=== PATIENT | female | born 1990 | race Caucasian/White ===

== ENCOUNTER 2018-03-03 20:47 | Emergency (ER) | payer MEDICAID ==
[~2018-03-03] VITALS: Ht 165.1 cm; Wt 81.2 kg
[2018-03-03 20:59] VITALS: BP_SYST 124
[2018-03-03] MEDS ORDERED: NACL 0.9% 1,000 ML IV ONE (21:34)
[2018-03-03] MEDS ORDERED: PANTOPRAZOLE SODIUM 40 MG/VIAL (PROTONIX) IVP ONE (21:45)
[2018-03-03] MEDS ORDERED: ONDANSETRON HCL 4 MG/2 ML VIAL IVP ONE (21:45)
[2018-03-03] MEDS ORDERED: MAG HYDROX/AL HYDROX/SIMETH 30 ML, BELLADONNA ALKALOIDS/PHENOBARB 10 ML, LIDOCAINE VISC... PO ONE ×3 (21:45)
[2018-03-03 22:23] LABS: BASOPHILS % (AUTO) 0.5 % (0.0-2.0); EOSINOPHILS # (AUTO) 0.1 K/uL (0.0-0.4); EOSINOPHILS % (AUTO) 1.2 % (0.0-4.0); HEMOGLOBIN 12.5 g/dL (12.0-16.0); LYMPHOCYTES # (AUTO) 1.4 K/uL (1.0-5.5); LYMPHOCYTES % (AUTO) 16.2 % (20.5-51.5); MEAN CORPUSCULAR HEMOGLOBIN 22 pg (27-31); MEAN CORPUSCULAR HGB CONC 32 % (32-36); MEAN CORPUSCULAR VOLUME 68 fL (79.0-98.0); MONOCYTES # (AUTO) 0.5 K/uL (0.0-1.0); MONOCYTES % (AUTO) 5.2 % (1.7-9.3); NEUTROPHILS # (AUTO) 6.8 K/uL (1.8-7.7); NEUTROPHILS % (AUTO) 76.9 % (40.0-70.0); PLATELET COUNT (AUTO) 311 K/uL (130-430); RED BLOOD CELL COUNT(AUTO) 5.72 MIL/uL (4.2-6.2); WHITE BLOOD COUNT (AUTO) 8.8 K/uL (4.8-10.8)
[2018-03-03 22:25] LABS: CALCIUM 9.2 mg/dL (8.4-11.0); CREATININE 0.87 mg/dL (0.55-1.30); POTASSIUM 3.6 mmol/L (3.5-5.1)
[2018-03-03 22:31] LABS: ALBUMIN 3.7 g/dL (3.4-4.8); TOTAL BILIRUBIN 0.8 mg/dL (0.0-1.0)
[2018-03-03 22:44] LABS: BILIRUBIN,URINE NEGATIVE (NEGATIVE); CLARITY/URINE CLEAR (CLEAR); COLOR,URINE YELLOW (YELLOW); GLUCOSE,URINE NEGATIVE (NEGATIVE); KETONES,URINE NEGATIVE (NEGATIVE); LEUKOCYTE ESTERASE ,URINE NEGATIVE (NEGATIVE); NITRITE, URINE NEGATIVE (NEGATIVE); PROTEIN URINE NEGATIVE (NEGATIVE); UROBILINOGEN,URINE 0.2 (0.2-1.0)
[2018-03-03 22:51] LABS: BLOOD, URINE TRACE (NEGATIVE)
[2018-03-03 23:17] LABS: BACTERIA,URINE FEW /HPF (None Seen); WBC,URINE 0-3 /HPF (0-3)
[2018-03-03 23:18] LABS: MUCUS,URINE 1+ /LPF (None Seen)
[2018-03-03] MEDS ORDERED: DIPHENHYDRAMINE INJ 50 MG/ML VIAL IVP ONE (23:30)
[2018-03-03] MEDS ORDERED: MORPHINE 2 MG/ML INJ. SYRINGE IVP ONE (23:30)
[2018-03-03] MEDS ORDERED: MORPHINE SULFATE 10 MG/ML VIAL ONE (23:34)
[2018-03-04] MEDS ORDERED: MORPHINE 4 MG/ML INJ. SYRINGE IVP ONE (01:15)
[2018-03-04] MEDS ORDERED: DIPHENHYDRAMINE INJ 50 MG/ML VIAL IVP ONE (01:15)
[2018-03-04 01:58] VITALS: BP_SYST 121
== END 2018-03-04 01:58 | disposition home or self-care (01) ==
LOC: SED 20:47
DX: R10.13 Epigastric pain (principal); Z88.5 Allergy status to narcotic agent; Z86.79 Personal history of other diseases of the circulatory system; Z98.51 Tubal ligation status
CPT/HCPCS: 36415; 76700; 80053; 81000; 83690; 85025; 96361; 96374; 96375; 96376; 99285; C9113; J1200 ×2; J2001; J2270 ×2; J2405; J7030

== ENCOUNTER 2018-04-10 20:23 | Emergency (ER) | payer MEDICAID ==
[~2018-04-10] VITALS: Ht 165.1 cm; Wt 77.1 kg
[2018-04-10 20:30] VITALS: BP_SYST 130
[2018-04-10] MEDS ORDERED: NACL 0.9% 1,000 ML IV ONE (21:00)
[2018-04-10 21:25] LABS: BILIRUBIN,URINE NEGATIVE (NEGATIVE); BLOOD, URINE TRACE (NEGATIVE); CLARITY/URINE CLEAR (CLEAR); COLOR,URINE YELLOW (YELLOW); GLUCOSE,URINE NEGATIVE (NEGATIVE); KETONES,URINE NEGATIVE (NEGATIVE); LEUKOCYTE ESTERASE ,URINE NEGATIVE (NEGATIVE); NITRITE, URINE POSITIVE (NEGATIVE); PROTEIN URINE TRACE (NEGATIVE); UROBILINOGEN,URINE 0.2 (0.2-1.0)
[2018-04-10 21:28] LABS: BACTERIA,URINE MODERATE /HPF (None Seen); MUCUS,URINE 1+ /LPF (None Seen)
[2018-04-10 21:34] LABS: BARBITURATE, URINE NEGATIVE (NEG <=200); BENZODIAZEPINE, URINE NEGATIVE (NEG <=150); CANNABINOID, URINE POSITIVE (NEG <=50); COCAINE, URINE NEGATIVE (NEG <=150); METHAMPHETAMINES SCREEN,URINE POSITIVE (NEG <=500); OPIATE, URINE NEGATIVE (NEG <=100); PHENCYCLIDINE SCREEN,URINE NEGATIVE (NEG <=25); UR TRICYCLIC ANTIDEPRESSANTS NEGATIVE (NEG <=300); URINE AMPHETAMINE POSITIVE (NEG <=500); URINE METHADONE NEGATIVE (NEG <=200); URINE OXYCODONE SCREEN NEGATIVE (NEG <=100); URINE PROPOXYPHENE SCREEN NEGATIVE (NEG <=300)
[2018-04-10 21:41] LABS: EOSINOPHILS # (AUTO) 0.1 K/uL (0.0-0.4); LYMPHOCYTES # (AUTO) 2.3 K/uL (1.0-5.5); MEAN CORPUSCULAR HGB CONC 33 % (32-36); RED BLOOD CELL COUNT(AUTO) 5.46 MIL/uL (4.2-6.2); WHITE BLOOD COUNT (AUTO) 8.4 K/uL (4.8-10.8)
[2018-04-10 21:48] LABS: BASOPHILS # (AUTO) 0.1 K/uL (0.0-0.2); BASOPHILS % (AUTO) 1.2 % (0.0-2.0); HEMATOCRIT 38.8 % (36-48); HEMOGLOBIN 12.8 g/dL (12.0-16.0); LYMPHOCYTES % (AUTO) 27.2 % (20.5-51.5); MEAN CORPUSCULAR HEMOGLOBIN 23 pg (27-31); MEAN CORPUSCULAR VOLUME 71 fL (79.0-98.0); MONOCYTES # (AUTO) 0.4 K/uL (0.0-1.0); MONOCYTES % (AUTO) 4.7 % (1.7-9.3); NEUTROPHILS # (AUTO) 5.5 K/uL (1.8-7.7); NEUTROPHILS % (AUTO) 65.9 % (40.0-70.0); PLATELET COUNT (AUTO) 383 K/uL (130-430); RED CELL DISTRIBUTION WIDTH 18.4 % (9.0-15.0)
[2018-04-10 21:54] LABS: CALCIUM 8.8 mg/dL (8.4-11.0); CREATININE 0.87 mg/dL (0.55-1.30); POTASSIUM 3.9 mmol/L (3.5-5.1)
[2018-04-10 22:08] LABS: ALBUMIN 3.9 g/dL (3.4-4.8); THYROID STIMULATING HORMONE 1.15 uIu/mL (0.34-4.82); TOTAL BILIRUBIN 0.5 mg/dL (0.0-1.0)
[2018-04-10 22:24] VITALS: BP_SYST 128
== END 2018-04-10 22:24 | disposition home or self-care (01) ==
LOC: SED 20:23
DX: S00.03XA Contusion of scalp, initial encounter (principal); N39.0 Urinary tract infection, site not specified; F15.10 Other stimulant abuse, uncomplicated; F10.10 Alcohol abuse, uncomplicated; F12.90 Cannabis use, unspecified, uncomplicated; R03.0 Elevated blood-pressure reading, without diagnosis of hypertension; Z88.5 Allergy status to narcotic agent; Z86.79 Personal history of other diseases of the circulatory system; Z95.0 Presence of cardiac pacemaker; W18.30XA Fall on same level, unspecified, initial encounter; Y93.89 Activity, other specified; Y92.89 Other specified places as the place of occurrence of the external cause; Y99.8 Other external cause status
CPT/HCPCS: 36415; 70450; 72125; 80053; 80307; 81000; 84443; 85025; 87086; 93005; 96360; 99285; J7030

== ENCOUNTER 2018-08-20 12:25 | Emergency (ER) | payer MEDICAID ==
[~2018-08-20] VITALS: Ht 165.1 cm; Wt 81.6 kg
[2018-08-20 12:25] VITALS: BP_SYST 113
--- NOTE | 2018-08-20 12:25 | NUR ---
BROUGHT BACK TO BED #4 AND TRIAGED. REPORT GIVEN TO AC
--- NOTE | 2018-08-20 12:45 | NUR ---
DR VILLARREAL AT BEDSIDE FOR EVALUATION
--- NOTE | 2018-08-20 13:00 | NUR ---
Pt c/o sore throat and cough, no acute resp distress noted.
--- NOTE | 2018-08-20 13:33 | NUR ---
Patient given written and verbal discharge instructions and verbalizes understanding. ER MD discussed with patient the results and treatment provided. Patient in stable condition. ID arm band removed. Rx of Tramadol,Cepacol,Z-zhanna given. Patient educated on pain management and to follow up with PMD. Pain Scale 2. Opportunity for questions provided and answered. Medication side effect fact sheet provided.
[2018-08-20 13:35] VITALS: BP_SYST 127
== END 2018-08-20 13:33 | disposition home or self-care (01) ==
LOC: SED 12:25
DX: J03.90 Acute tonsillitis, unspecified (principal); Z88.5 Allergy status to narcotic agent
CPT/HCPCS: 99283

== ENCOUNTER 2018-10-30 16:26 | Emergency (ER) | payer MEDICAID ==
[~2018-10-30] VITALS: Ht 165.1 cm; Wt 82.6 kg
[2018-10-30 16:35] VITALS: BP_SYST 131
[2018-10-30 17:53] LABS: BASOPHILS # (AUTO) 0.1 K/uL (0.0-0.2); BASOPHILS % (AUTO) 0.8 % (0.0-2.0); EOSINOPHILS # (AUTO) 0.1 K/uL (0.0-0.4); HEMOGLOBIN 13.1 g/dL (12.0-16.0); LYMPHOCYTES # (AUTO) 1.9 K/uL (1.0-5.5); LYMPHOCYTES % (AUTO) 27.2 % (20.5-51.5); MEAN CORPUSCULAR HEMOGLOBIN 24 pg (27-31); MEAN CORPUSCULAR HGB CONC 32 % (32-36); MEAN CORPUSCULAR VOLUME 76 fL (79.0-98.0); MONOCYTES # (AUTO) 0.4 K/uL (0.0-1.0); MONOCYTES % (AUTO) 5.6 % (1.7-9.3); NEUTROPHILS # (AUTO) 4.5 K/uL (1.8-7.7); NEUTROPHILS % (AUTO) 65.4 % (40.0-70.0); PLATELET COUNT (AUTO) 384 K/uL (130-430); RED CELL DISTRIBUTION WIDTH 14.1 % (9.0-15.0)
[2018-10-30 18:07] LABS: CALCIUM 9.1 mg/dL (8.4-11.0); CREATININE 0.88 mg/dL (0.55-1.30); POTASSIUM 3.9 mmol/L (3.5-5.1)
[2018-10-30 18:12] LABS: ALBUMIN 3.8 g/dL (3.4-4.8); TOTAL BILIRUBIN 0.4 mg/dL (0.0-1.0)
[2018-10-30 18:36] VITALS: BP_SYST 131
== END 2018-10-30 18:36 | disposition home or self-care (01) ==
LOC: SED 16:26
DX: N93.8 Other specified abnormal uterine and vaginal bleeding (principal); D21.9 Benign neoplasm of connective and other soft tissue, unspecified; Z86.79 Personal history of other diseases of the circulatory system; Z98.51 Tubal ligation status; Z88.5 Allergy status to narcotic agent; Z88.8 Allergy status to other drugs, medicaments and biological substances
CPT/HCPCS: 36415; 76830-TC; 76857; 80053; 85025; 99284

== ENCOUNTER 2019-02-17 16:46 | Emergency (ER) | payer MEDICAID ==
[~2019-02-17] VITALS: Ht 165.1 cm; Wt 82.6 kg
[2019-02-17 16:50] VITALS: BP_SYST 139
[2019-02-17] MEDS ORDERED: CYCLOBENZAPRINE HCL 10 MG TABLET (FLEXERIL) PO ONE (20:15)
[2019-02-17] MEDS ORDERED: KETOROLAC TROMETHAMINE 30 MG VIAL IM ONE (20:15)
[2019-02-17] MEDS ORDERED: HYDROcodone/ACETAMIN 5-325 MG TAB (NORCO/ VICODIN) PO ONE (21:15)
[2019-02-17 22:15] VITALS: BP_SYST 139
== END 2019-02-17 22:15 | disposition home or self-care (01) ==
LOC: SED 16:46
DX: S39.012A Strain of muscle, fascia and tendon of lower back, initial encounter (principal); M54.30 Sciatica, unspecified side; R03.0 Elevated blood-pressure reading, without diagnosis of hypertension; Z86.79 Personal history of other diseases of the circulatory system; Z90.49 Acquired absence of other specified parts of digestive tract; Z98.51 Tubal ligation status; Z88.8 Allergy status to other drugs, medicaments and biological substances; X58.XXXA Exposure to other specified factors, initial encounter; Y93.89 Activity, other specified; Y92.89 Other specified places as the place of occurrence of the external cause; Y99.8 Other external cause status
CPT/HCPCS: 81025; 96372; 99283; J1885

== ENCOUNTER 2019-07-04 03:54 | Emergency (ER) | payer MEDICAID ==
[~2019-07-04] VITALS: Ht 165.1 cm; Wt 85.3 kg
[2019-07-04 04:05] VITALS: BP_SYST 145
--- NOTE | 2019-07-04 04:05 | NUR ---
Pt c/o severe H/A since 1699 yesterday associated with nausea, photophobia, chills, bilat ear pain, sore throat and poor appetite. Pt states "It feels like my head's gonna pop."
--- NOTE | 2019-07-04 04:05 | NUR ---
Pt ambulatory to bed 7 for evaluation
--- NOTE | 2019-07-04 04:12 | NUR ---
Dr. Norton at bedside.
[2019-07-04] MEDS ORDERED: PRED5TAB PO (04:15)
[2019-07-04] MEDS ORDERED: DIPHENHYDRAMINE INJ 50 MG/ML VIAL IM ONE (04:15)
[2019-07-04] MEDS ORDERED: PROCHLORPERAZINE EDISYLATE 10 MG/2 ML VIAL IM ONE (04:15)
--- NOTE | 2019-07-04 05:11 | NUR ---
Pt verbalizes minimal relief in H/A to 05/18. Dr. Norton notified.
[2019-07-04] MEDS ORDERED: AMOXICILLIN 500 MG CAPSULE PO ONE (05:15)
[2019-07-04] MEDS ORDERED: KETOROLAC TROMETHAMINE 60 MG/2 ML VIAL IM ONE (05:30)
--- NOTE | 2019-07-04 06:20 | NUR ---
Pt verbalizes improvement in H/A to 11/18. Pt up for discharge. Pt attempting to call for a ride.
--- NOTE | 2019-07-04 06:35 | NUR ---
Pt resting quietly. Awakened to check if her ride is coming. Pt states that she will call again.
--- NOTE | 2019-07-04 06:45 | NUR ---
Pt states that a friend will pick her up.
[2019-07-04 07:00] VITALS: BP_SYST 134
--- NOTE | 2019-07-04 07:00 | NUR ---
Patient given written and verbal discharge instructions and verbalizes understanding. ER MD discussed with patient the results and treatment provided. Patient in stable condition. ID arm band removed. Rx of Amoxicillin, Tramadol, Motrin, Zofran given. Patient educated on pain management and to follow up with PMD. Pain Scale 1/10. Opportunity for questions provided and answered. Medication side effect fact sheet provided.
== END 2019-07-04 07:00 | disposition home or self-care (01) ==
LOC: SED 03:54
DX: H66.92 Otitis media, unspecified, left ear (principal); R51 Headache; R03.0 Elevated blood-pressure reading, without diagnosis of hypertension; Z86.79 Personal history of other diseases of the circulatory system; Z88.8 Allergy status to other drugs, medicaments and biological substances
CPT/HCPCS: 70450; 81025; 96372; 99284; J0780; J1200; J1885

== ENCOUNTER 2019-08-02 18:39 | Emergency (ER) | payer MEDICAID ==
[~2019-08-02] VITALS: Ht 165.1 cm; Wt 95.3 kg
[~2019-08-02 18:39] MED LIST: PRED5TAB PO
[2019-08-02 18:48] VITALS: BP_SYST 152
[2019-08-02 22:11] LABS: BASOPHILS % (AUTO) 0.5 % (0.0-2.0); EOSINOPHILS # (AUTO) 0.2 K/uL (0.0-0.4); EOSINOPHILS % (AUTO) 1.7 % (0.0-4.0); HEMATOCRIT 37.6 % (36-48); HEMOGLOBIN 12.6 g/dL (12.0-16.0); LYMPHOCYTES # (AUTO) 3.1 K/uL (1.0-5.5); LYMPHOCYTES % (AUTO) 34.5 % (20.5-51.5); MEAN CORPUSCULAR HEMOGLOBIN 26 pg (27-31); MEAN CORPUSCULAR HGB CONC 33 % (32-36); MEAN CORPUSCULAR VOLUME 76 fL (79.0-98.0); MONOCYTES # (AUTO) 0.7 K/uL (0.0-1.0); MONOCYTES % (AUTO) 8.2 % (1.7-9.3); NEUTROPHILS # (AUTO) 4.9 K/uL (1.8-7.7); NEUTROPHILS % (AUTO) 55.1 % (40.0-70.0); PLATELET COUNT (AUTO) 331 K/uL (130-430); RED BLOOD CELL COUNT(AUTO) 4.92 MIL/uL (4.2-6.2); RED CELL DISTRIBUTION WIDTH 15.1 % (9.0-15.0); WHITE BLOOD COUNT (AUTO) 8.9 K/uL (4.8-10.8)
[2019-08-02 22:33] LABS: CALCIUM 8.9 mg/dL (8.4-11.0); CREATININE 0.78 mg/dL (0.55-1.30)
[2019-08-02 22:38] LABS: ALBUMIN 3.6 g/dL (3.4-4.8); PROTHROMBIN TIME 10.4 SECS (9.5-12.5); TOTAL BILIRUBIN 0.3 mg/dL (0.0-1.0)
[2019-08-03] MEDS ORDERED: OXYCODONE/ACETAMINOPHEN 5-325 TABLET PO ONE (01:00)
[2019-08-03 01:09] VITALS: BP_SYST 146
== END 2019-08-03 01:09 | disposition home or self-care (01) ==
LOC: SED 18:39
DX: M25.562 Pain in left knee (principal); Z86.79 Personal history of other diseases of the circulatory system; Z88.8 Allergy status to other drugs, medicaments and biological substances
CPT/HCPCS: 36415; 80053; 85025; 85379; 85610-TC; 85730-TC; 93971; 99284

== ENCOUNTER 2022-02-28 13:11 | Emergency (ER) | payer MEDICAID ==
[~2022-02-28] VITALS: Ht 165.1 cm; Wt 95.3 kg
[2022-02-28 13:20] VITALS: BP_SYST 128
--- NOTE | 2022-02-28 13:40 | NUR ---
place pt in room 2. ok to provide rprt to Val Mckeon.
--- NOTE | 2022-02-28 13:45 | NUR ---
PT VSS C/O LOWER LEFT FLANK PAIN. PAIN LEVEL 8/10. PT STATES DIFFICULTY URINATING THIS MORNING AT 6 AM. NO OUTPUT SINCE 0600 REPORTED. PT IS LETHARGIC. COVID:NON VACCINATED PMH KIDNEY STONES SUBSTANCE ABUSE- REHAB. PACE MAKER IMPLANT IN/REMOVED TUBAL LIGATION
--- NOTE | 2022-02-28 13:45 | NUR ---
ER at bedside examining patient.
--- NOTE | 2022-02-28 13:55 | NUR ---
pt states part of a substance abuse rehab program and refused the narcotic Dennis.
[2022-02-28] MEDS ORDERED: KETOROLAC TROMETHAMINE 60 MG/2 ML VIAL IM ONE ×2 (14:00→14:15)
[2022-02-28] MEDS ORDERED: HYDROcodone/ACETAMIN 10-325 MG TAB PO ONE (14:00)
--- NOTE | 2022-02-28 14:43 | NUR ---
pt ambulates to restroom with steady gait for urine collection.
[2022-02-28 15:13] LABS: BILIRUBIN,URINE NEGATIVE (NEGATIVE); BLOOD, URINE NEGATIVE (NEGATIVE); COLOR,URINE YELLOW (YELLOW); GLUCOSE,URINE NEGATIVE (NEGATIVE); KETONES,URINE NEGATIVE (NEGATIVE); LEUKOCYTE ESTERASE ,URINE 3+ (NEGATIVE); NITRITE, URINE NEGATIVE (NEGATIVE); PROTEIN URINE TRACE (NEGATIVE); UROBILINOGEN,URINE 0.2 (0.2-1.0)
[2022-02-28 15:19] LABS: CLARITY/URINE HAZY (CLEAR)
[2022-02-28 15:20] LABS: BACTERIA,URINE FEW /HPF (None Seen); MUCUS,URINE None Seen /LPF (None Seen); RBC,URINE 0-3 /HPF (0-3); WBC,URINE 50-80 /HPF (0-3)
--- NOTE | 2022-02-28 15:20 | NUR ---
assess pt in bed. pt vs are within normal limits. pt resting comfortably in bed, bed locked and lowered and rails up. pt urinated on himself and does not want to be changed. waiting for lab to come draw after failed attempt on left hand (dorsal)
[2022-02-28 16:01] LABS: BASOPHILS % (AUTO) 0.5 % (0.0-2.0); EOSINOPHILS # (AUTO) 0.2 K/uL (0.0-0.4); HEMATOCRIT 38.4 % (36-48); HEMOGLOBIN 12.4 g/dL (12.0-16.0); LYMPHOCYTES # (AUTO) 2.2 K/uL (1.0-5.5); MEAN CORPUSCULAR HEMOGLOBIN 23 pg (27-31); MEAN CORPUSCULAR HGB CONC 32 % (32-36); MEAN CORPUSCULAR VOLUME 72 fL (79.0-98.0); MONOCYTES # (AUTO) 0.5 K/uL (0.0-1.0); MONOCYTES % (AUTO) 6.2 % (1.7-9.3); NEUTROPHILS # (AUTO) 4.9 K/uL (1.8-7.7); NEUTROPHILS % (AUTO) 63.3 % (40.0-70.0); PLATELET COUNT (AUTO) 365 K/uL (130-430); RED CELL DISTRIBUTION WIDTH 16.3 % (9.0-15.0); WHITE BLOOD COUNT (AUTO) 7.7 K/uL (4.8-10.8)
[2022-02-28 16:14] LABS: CALCIUM 8.8 mg/dL (8.4-11.0); CREATININE 0.78 mg/dL (0.55-1.30); POTASSIUM 4.2 mmol/L (3.5-5.1)
[2022-02-28 16:19] LABS: TOTAL BILIRUBIN 0.1 mg/dL (0.0-1.0)
[2022-02-28 16:23] LABS: C-REACTIVE PROTEIN QUANT 2.1 mg/dL (0-0.5)
[2022-02-28] MEDS ORDERED: NITR-85 PO (16:34)
[2022-02-28] MEDS ORDERED: IBUP-1969 PO (16:34)
[2022-02-28] MEDS ORDERED: HYDR-3917 PO (16:34)
[2022-02-28 17:03] VITALS: BP_SYST 132
--- NOTE | 2022-02-28 17:05 | NUR ---
Pt dc home. Verbalized uderstanding of dc teaching, medications, and follow up care. All belongings with pt.
== END 2022-02-28 17:04 | disposition home or self-care (01) ==
LOC: SED 13:11
DX: N10 Acute pyelonephritis (principal); Z88.8 Allergy status to other drugs, medicaments and biological substances
CPT/HCPCS: 36415; 74176; 76376; 80053; 81000; 81025; 82150; 83690; 84703; 85025; 86140; 87086; 96372; 99284; J1885

== ENCOUNTER 2022-04-29 17:05 | Emergency (ER) | payer MEDICAID ==
[~2022-04-29] VITALS: Ht 165.1 cm; Wt 99.8 kg
[~2022-04-29 17:05] MED LIST changes: +HYDR-3917 PO; +IBUP-1969 PO; +NITR-85 PO
[2022-04-29 17:10] VITALS: BP_SYST 134
--- NOTE | 2022-04-29 17:19 | NUR ---
PT TRIAGED AND PLACED IN ED LOBBY FOR AVAILABLE BED IN MAIN ED, MADE AWARE OF MSE NEEDS
--- NOTE | 2022-04-29 17:20 | NUR ---
PT CAME IN FROM HOME C/O REPORTS COUGH AND RIGHT SIDED CHEST PRESSURE X 3 DAYS, STATES SHE MISCARRIED 4 DAYS AGO WITH LOWER ABD CRAMPING, DENIES VAG BLEEDING. REPORTS SHE IS WORRIED THAT SHE STILL HAS CONTENTS LEFT IN HER UTERUS. PT IS AMBULATORY, AAOX4, VSS
[2022-04-29 17:40] LABS: BILIRUBIN,URINE NEGATIVE (NEGATIVE); BLOOD, URINE 1+ (NEGATIVE); CLARITY/URINE CLEAR (CLEAR); COLOR,URINE YELLOW (YELLOW); GLUCOSE,URINE NEGATIVE (NEGATIVE); KETONES,URINE NEGATIVE (NEGATIVE); LEUKOCYTE ESTERASE ,URINE NEGATIVE (NEGATIVE); NITRITE, URINE NEGATIVE (NEGATIVE); PROTEIN URINE NEGATIVE (NEGATIVE); UROBILINOGEN,URINE 0.2 (0.2-1.0)
[2022-04-29 18:14] LABS: BACTERIA,URINE FEW /HPF (None Seen); WBC,URINE 0-3 /HPF (0-3)
[2022-04-29] MEDS ORDERED: IBUP-1969 PO (20:33)
[2022-04-29] MEDS ORDERED: TRAM50TA PO (20:34)
--- NOTE | 2022-04-29 20:51 | NUR ---
Patient given written and verbal discharge instructions and verbalizes understanding. ER MD discussed with patient the results and treatment provided. Patient in stable condition. ID arm band removed. IV catheter removed intact and dressing applied, no active bleeding. Rx of ibuprofen, tramadol given. Patient educated on pain management and to follow up with PMD. Pain Scale . Opportunity for questions provided and answered. Medication side effect fact sheet provided.
[2022-04-29 20:52] VITALS: BP_SYST 143
== END 2022-04-29 20:52 | disposition home or self-care (01) ==
LOC: SED 17:05
DX: R07.89 Other chest pain (principal); Z88.8 Allergy status to other drugs, medicaments and biological substances; Z79.899 Other long term (current) drug therapy
CPT/HCPCS: 71046-TC; 81000; 81025; 93005; 99285

== ENCOUNTER 2023-06-18 17:29 | Emergency (ER) | payer MEDICAID ==
[~2023-06-18] VITALS: Ht 167.6 cm; Wt 99.8 kg
[~2023-06-18 17:29] MED LIST changes: +TRAM50TA PO
[2023-06-18 17:30] VITALS: BP_SYST 120; PULSE 89; RESP 18; TEMP 98; O2SAT 97
[2023-06-18 18:34] LABS: BASOPHILS # (AUTO) 0.1 K/uL (0.0-0.2); BASOPHILS % (AUTO) 0.7 % (0.0-2.0); EOSINOPHILS # (AUTO) 0.1 K/uL (0.0-0.4); EOSINOPHILS % (AUTO) 0.9 % (0.0-4.0); HEMOGLOBIN 13.1 g/dL (12.0-16.0); LYMPHOCYTES # (AUTO) 3.2 K/uL (1.0-5.5); LYMPHOCYTES % (AUTO) 29.2 % (20.5-51.5); MEAN CORPUSCULAR HEMOGLOBIN 24 pg (27-31); MEAN CORPUSCULAR HGB CONC 32 % (32-36); MEAN CORPUSCULAR VOLUME 75 fL (79.0-98.0); MONOCYTES # (AUTO) 0.8 K/uL (0.0-1.0); MONOCYTES % (AUTO) 7.4 % (1.7-9.3); NEUTROPHILS # (AUTO) 6.7 K/uL (1.8-7.7); NEUTROPHILS % (AUTO) 61.8 % (40.0-70.0); PLATELET COUNT (AUTO) 334 K/uL (130-430); RED BLOOD CELL COUNT(AUTO) 5.47 MIL/uL (4.2-6.2); RED CELL DISTRIBUTION WIDTH 15.7 % (9.0-15.0); WHITE BLOOD COUNT (AUTO) 10.8 K/uL (4.8-10.8)
[2023-06-18 18:37] LABS: CALCIUM 8.6 mg/dL (8.4-11.0); CREATININE 0.96 mg/dL (0.55-1.30)
[2023-06-18 18:41] LABS: ALBUMIN 3.3 g/dL (3.4-4.8); TOTAL BILIRUBIN 0.3 mg/dL (0.0-1.0); TOTAL PROTEIN, SERUM 7.5 g/dL (6.4-8.3)
[2023-06-18 19:28] LABS: BILIRUBIN,URINE NEGATIVE (NEGATIVE); BLOOD, URINE NEGATIVE (NEGATIVE); CLARITY/URINE CLOUDY (CLEAR); COLOR,URINE YELLOW (YELLOW); GLUCOSE,URINE NEGATIVE (NEGATIVE); KETONES,URINE TRACE (NEGATIVE); LEUKOCYTE ESTERASE ,URINE 2+ (NEGATIVE); NITRITE, URINE NEGATIVE (NEGATIVE); PROTEIN URINE NEGATIVE (NEGATIVE); UROBILINOGEN,URINE 0.2 (0.2-1.0)
[2023-06-18 19:50] LABS: BARBITURATE, URINE NEGATIVE (NEG <=200); BENZODIAZEPINE, URINE NEGATIVE (NEG <=150); CANNABINOID, URINE NEGATIVE (NEG <=50); COCAINE, URINE NEGATIVE (NEG <=150); METHAMPHETAMINES SCREEN,URINE POSITIVE (NEG <=500); OPIATE, URINE NEGATIVE (NEG <=100); PHENCYCLIDINE SCREEN,URINE NEGATIVE (NEG <=25); UR TRICYCLIC ANTIDEPRESSANTS NEGATIVE (NEG <=300); URINE AMPHETAMINE POSITIVE (NEG <=500); URINE METHADONE NEGATIVE (NEG <=200); URINE OXYCODONE SCREEN NEGATIVE (NEG <=100); URINE PROPOXYPHENE SCREEN NEGATIVE (NEG <=300)
[2023-06-18 20:26] LABS: BACTERIA,URINE MANY /HPF (None Seen); MUCUS,URINE 2+ /LPF (None Seen); RBC,URINE NONE SEEN /HPF (0-3); WBC,URINE 20-50 /HPF (0-3)
[2023-06-18] MEDS ORDERED: LEVO750T64 PO (21:07)
[2023-06-18 21:21] VITALS: BP_SYST 120; PULSE 89; RESP 18; TEMP 98; O2SAT 97
== END 2023-06-18 21:21 | disposition home or self-care (01) ==
LOC: SED 17:29
DX: N39.0 Urinary tract infection, site not specified (principal); R10.11 Right upper quadrant pain; F19.10 Other psychoactive substance abuse, uncomplicated; R68.83 Chills (without fever); Z79.899 Other long term (current) drug therapy
CPT/HCPCS: 36415; 76376; 80053; 80307; 81000; 81025; 83690; 85025; 87086; 99284

== ENCOUNTER 2023-12-10 05:16 | Emergency (ER) | payer MEDICAID ==
[~2023-12-10] VITALS: Ht 165.1 cm; Wt 95.3 kg
[~2023-12-10 05:16] MED LIST changes: +LEVO750T64 PO
[2023-12-10 05:24] VITALS: BP_SYST 126; PULSE 67; RESP 15; TEMP 97.7; O2SAT 99
[2023-12-10] MEDS ORDERED: CLINDAMYCIN 900 mg/50mL D5W 50 ML IV ONE (06:15)
[2023-12-10] MEDS ORDERED: KETOROLAC TROMETHAMINE 30 MG VIAL IVP ONE (06:15)
[2023-12-10 06:58] LABS: BASOPHILS % (AUTO) 0.3 % (0.0-2.0); EOSINOPHILS # (AUTO) 0.1 K/uL (0.0-0.4); EOSINOPHILS % (AUTO) 0.7 % (0.0-4.0); HEMATOCRIT 43.4 % (36-48); HEMOGLOBIN 14.3 g/dL (12.0-16.0); LYMPHOCYTES # (AUTO) 1.3 K/uL (1.0-5.5); LYMPHOCYTES % (AUTO) 12.1 % (20.5-51.5); MEAN CORPUSCULAR HEMOGLOBIN 24 pg (27-31); MEAN CORPUSCULAR HGB CONC 33 % (32-36); MEAN CORPUSCULAR VOLUME 73 fL (79.0-98.0); MONOCYTES # (AUTO) 0.8 K/uL (0.0-1.0); MONOCYTES % (AUTO) 6.9 % (1.7-9.3); PLATELET COUNT (AUTO) 151 K/uL (130-430); RED BLOOD CELL COUNT(AUTO) 5.91 MIL/uL (4.2-6.2); RED CELL DISTRIBUTION WIDTH 16.2 % (9.0-15.0); WHITE BLOOD COUNT (AUTO) 11.2 K/uL (4.8-10.8)
[2023-12-10 07:05] LABS: CREATININE 1.13 mg/dL (0.55-1.30); POTASSIUM 4.2 mmol/L (3.5-5.1)
[2023-12-10] MEDS ORDERED: HYDR-3917 PO (07:25)
[2023-12-10] MEDS ORDERED: CLIN-142 PO (07:25)
[2023-12-10 07:39] VITALS: BP_SYST 126; PULSE 67; RESP 15; TEMP 97.7; O2SAT 99
== END 2023-12-10 07:35 | disposition home or self-care (01) ==
LOC: SED 05:16
DX: K04.7 Periapical abscess without sinus (principal); L03.211 Cellulitis of face; Z79.899 Other long term (current) drug therapy
CPT/HCPCS: 99284; 96365; 96375; 80048; 85025; 87040; 36415; J3490; J1885

== ENCOUNTER 2024-04-14 03:35 | Emergency (ER) | payer MEDICAID ==
[~2024-04-14] VITALS: Ht 165.1 cm; Wt 95.3 kg
[~2024-04-14 03:35] MED LIST changes: +CLIN-142 PO
[2024-04-14 03:47] VITALS: BP_SYST 125; PULSE 95; RESP 18; TEMP 98.4; O2SAT 100
[2024-04-14 04:45] LABS: BILIRUBIN,URINE NEGATIVE (NEGATIVE); CLARITY/URINE SL CLOUDY (CLEAR); COLOR,URINE YELLOW (YELLOW); GLUCOSE,URINE NEGATIVE (NEGATIVE); KETONES,URINE NEGATIVE (NEGATIVE); LEUKOCYTE ESTERASE ,URINE TRACE (NEGATIVE); NITRITE, URINE NEGATIVE (NEGATIVE); PROTEIN URINE NEGATIVE (NEGATIVE); UROBILINOGEN,URINE 0.2 (0.2-1.0)
[2024-04-14 04:53] LABS: BACTERIA,URINE None Seen /HPF (None Seen); BLOOD, URINE NEGATIVE (NEGATIVE); RBC,URINE 0-3 /HPF (0-3)
[2024-04-14 04:55] LABS: BASOPHILS # (AUTO) 0.1 K/uL (0.0-0.2); BASOPHILS % (AUTO) 0.8 % (0.0-2.0); EOSINOPHILS # (AUTO) 0.1 K/uL (0.0-0.4); EOSINOPHILS % (AUTO) 1.4 % (0.0-4.0); HEMATOCRIT 39.3 % (36-48); HEMOGLOBIN 13.2 g/dL (12.0-16.0); LYMPHOCYTES # (AUTO) 2.9 K/uL (1.0-5.5); LYMPHOCYTES % (AUTO) 29.3 % (20.5-51.5); MEAN CORPUSCULAR HEMOGLOBIN 25 pg (27-31); MEAN CORPUSCULAR HGB CONC 34 % (32-36); MEAN CORPUSCULAR VOLUME 73 fL (79.0-98.0); MONOCYTES # (AUTO) 0.5 K/uL (0.0-1.0); MONOCYTES % (AUTO) 5.3 % (1.7-9.3); NEUTROPHILS # (AUTO) 6.3 K/uL (1.8-7.7); NEUTROPHILS % (AUTO) 63.2 % (40.0-70.0); PLATELET COUNT (AUTO) 380 K/uL (130-430); RED BLOOD CELL COUNT(AUTO) 5.39 MIL/uL (4.2-6.2); RED CELL DISTRIBUTION WIDTH 16.8 % (9.0-15.0); WHITE BLOOD COUNT (AUTO) 9.9 K/uL (4.8-10.8)
[2024-04-14 05:17] LABS: ALBUMIN 3.2 g/dL (3.4-4.8); BILIRUBIN,DIRECT 0.1 mg/dL (0.0-0.3); CALCIUM 9.2 mg/dL (8.4-11.0); POTASSIUM 3.6 mmol/L (3.5-5.1); TOTAL BILIRUBIN 0.3 mg/dL (0.0-1.0); TOTAL PROTEIN, SERUM 7.5 g/dL (6.4-8.3)
[2024-04-14] MEDS: NACL 0.9% 1,000 ML IV ONE (05:28)
[2024-04-14] MEDS: MORPHINE 4 MG INJ. 4 MG/ML VIAL IVP ONE (05:33)
[2024-04-14] MEDS ORDERED: OMEP20CA15 PO (07:37)
[2024-04-14 07:45] VITALS: BP_SYST 102; PULSE 63; RESP 16; TEMP 96.5; O2SAT 94
== END 2024-04-14 07:45 | disposition home or self-care (01) ==
LOC: SED 03:35
DX: R10.12 Left upper quadrant pain (principal); Z79.899 Other long term (current) drug therapy; Z79.2 Long term (current) use of antibiotics
CPT/HCPCS: 99285; 74176; 96374; 96361; 80076; 80048; 81001; 85025; 36415; 81025; J2270; J7030; 81000; 81015